=== PATIENT | female | born 2005 ===

== ENCOUNTER 2025-07-11 17:22 | Emergency (ER) | payer MEDICAID ==
[~2025-07-11] VITALS: Ht 157.5 cm; Wt 46.3 kg
[2025-07-11 17:26] VITALS: BP 113/65; PULSE 120; RESP 18; O2SAT 99
[2025-07-11 18:07] LABS: LEUKOCYTE ESTERASE ,URINE TRACE (Neg); NITRITES, URINE NEGATIVE (Neg); OCCULT BLOOD,URINE LARGE (Neg)
[2025-07-11 18:09] LABS: URINE HCG NEGATIVE (NEG)
[2025-07-11 18:17] LABS: UA COLLECTION TYPE CLN CATCH MIDSTREAM
[2025-07-11 18:19] LABS: SQUAMOUS EPITHELIAL CELL,UR MODERATE /LPF (FEW)
[2025-07-11] MEDS: phenazopyridine 100mg tablet PO ONE (20:29)
[2025-07-11] MEDS: ibuprofen tablet 400 MG TABLET PO ONE (20:29)
[2025-07-11] MEDS: CefTRIAXone 1000mg IM Kit (w/lidocaine diluent) IM ONE (20:39)
[2025-07-11] MEDS ORDERED: CEPH-585 PO (20:39)
[2025-07-11] MEDS ORDERED: PHEN-716 PO (20:39)
--- NOTE | 2025-07-11 20:39 | Physician Documentation ---
History of Present Illness ~ Chief Complaint: Urinary Symptoms Stated Complaint: UTI SYMPTOMS Time Seen by MD: 19:56 OK to notify your PCP?: Yes Source: patient Mode of Arrival: POV Exam Limitations: no limitations HPI This is a 19-year-old female who comes in complaining of urinary urgency frequency and burning with urination for the past 2-3 days. She states there was blood on the tissue when she wipes. Her last menstrual period ended two days ago. She denies fevers chills or flank pain. Medication Reconciliation Allergies: Coded Allergies: codeine (Verified Allergy, Unknown, 07/11/25) Physical Exam Vital Signs: Temperature: 98.6, Source: Temporal, Heart Rate: 120, Respiratory Rate: 18, BP: 113/65, Pulse Oximetry: 99, Weight: 46.300 Oxygen Flow Rate: 0 Pulse Oximetry Reflects: adequate oxygenation General Appearance: alert, WD/WN, no apparent distress Respiratory: no respiratory distress Back: no CVA tenderness Progress Results/Orders Reviewed/noted all lab results: Yes Results/Orders Completed Orders - GITA RAHMAN Ceftriaxone Im Kit W/Lidocaine (Rocephin (07/11/25 20:20) Phenazopyridine Tablet (Pyridium Tablet) (07/11/25 20:20) Ibuprofen Tablet (Motrin Tablet) (07/11/25 20:20) Medications Received in ER Medications (Trade) Dose Ordered Sig/Rosy Route PRN Reason Start Time Stop Time Status Last Admin Dose Admin (Pyridium tablet) 200 mg ONCE ONCE PO 07/11/25 20:20 07/11/25 20:21 DC 07/11/25 20:29 200 MG (Motrin tablet) 400 mg ONCE ONCE PO 07/11/25 20:20 07/11/25 20:21 DC 07/11/25 20:29 400 MG Vital Signs 07/11/25 17:26 Temp 98.6 Pulse 120 Resp 18 B/P (MAP) 113/65 Pulse Ox 99 O2 Flow Rate 0 Laboratory Tests Test 07/11/25 17:50 Urine Specimen Description Cln catch midstream Urine Color Yellow Urine Clarity Cloudy Urine pH 6.0 Urine Specific [place] >=1.030 Urine Protein >=300 H Urine Glucose (UA) Negative Urine Ketones Trace H Urine Occult Blood Large H Urine Nitrite Negative Urine Bilirubin Small Urine Urobilinogen 0.2 Urine Leukocyte Esterase Trace H Urine RBC Tntc Urine WBC 10-20 H Urine Squamous Epithelial Cells Moderate Urine Bacteria 2+ Urine Culture Indicated Indicated Volume Urine Centrifuged 10 ml Urine HCG, Qualitative Negative Urine Comment Microbiology Date/Time Source Procedure Growth Status 07/11/25 18:21 Urine Clean Catch Midstream Urine Culture - Preliminary Culture received. Resulted Medical Decision Making Additional information obtaine: N/A Findings Urinalysis showed a significant amount of blood in the patient did finish her menstrual cycle a couple of days ago however her symptoms are very consistent with a urinary tract infection. I gave the patient is Rocephin 1 g IM, Pyridium 200 mg p.o. and ibuprofen 400 mg p.o.. I will continue with the Keflex 500 mg 3 times a day for 10 days and Pyridium for home with the instructions drink lots of water and take ibuprofen as needed for discomfort. Follow up with the primary care physician for recheck towards the end of the antibiotic course to ensure the infection is resolving. Return to the ER for any worsening or concerning symptoms. Urinary Diff Dx:Considerations: Include: AAA, , Aortic dissection, Appendicitis, Bowel obstruction, Cholelithiasis, Choleangitis, DJD, Ectopic , Hepatitis, HNP, Impaction, Intrauterine , Musculoskeletal pain, Ovarian torsion, Pancreatitis, PID, Post-Op complication, Pyelonephritis, Renal failure, Strain, Urinary Obstruction, Urolithiasis, Urinary retention, UTI, Vaginitis, Other Genital Diff Dx:Considerations: Include: -Complete, - Incomplete, -Inevitable, Ablortion-Missed, -Threatened, Abruptio placentae, Bartholin abscess, Bartholin cyst, Blood loss anemia, Constipation, Cervicitis, Dsymenorrhea, Ectopic , Foreign body, Hormonal, Hidradenitis suppurativa, Intrauterine , Menorrhagia, Menometrorrhagia, Menstrual bleeding, Myomatous uterus, Perianal abscess, Physiologic discharge, Pinworms, PID, Placenta previa, , Precipitous Hct, Trauma, UTI, Vaginitis(osis)-Atrophic, Vaginitis, Vaginitis(osis)-Bacterial, Vaginitis(osis)- Candidal, Vaginitis(osis)-Contact, Vaginitis(osis)-Herpes, Vaginitis(osis)- Trich., Other Additional Comment Cystitis. UTI. Pyelonephritis. Hematuria. Nephrolithiasis. Departure Disposition: HOME / SELF CARE / HOMELESS Impression: Primary Impression: Acute urinary tract infection Condition: Stable Discharge Instructions: Urinary Tract Infection, Adult Additional Instructions: Take the medications as prescribed drink lots of water. You can take ibuprofen intermittently as needed for discomfort. Follow up with the your primary care physician to ensure the infection is resolving. Return to the ER for fever, flank pain or any concerns. Referrals: NO PRIMARY CARE PROVIDER (PCP) Prescriptions Phenazopyridine HCl (Pyridium) 200 Mg Tablet 1 TAB PO Q8H for urinary discomfort for 3 Days, #9 TAB 0 Refills Prov: GITA RAHMAN 07/11/25 Cephalexin*Monohydrate* (Keflex*) 500 Mg Capsule 1 CAP PO Q8H for 10 Days, #30 CAP Prov: GITA RAHMAN 07/11/25 Signature Scribe Signature: No scribe Attestation: The note accurately reflects work and decisions made by me.Gita CUEVAS 07/11/25 20:39 GITA RAHMAN Jul 11, 2025 20:39
[2025-07-11 20:50] VITALS: TEMP 98.6
== END 2025-07-11 20:52 | disposition home or self-care (01) ==
LOC: ER 17:23
DX: N39.0 Urinary tract infection, site not specified (principal); Z88.5 Allergy status to narcotic agent
CPT/HCPCS: 81001; 81025; 87088; 96372; 99283; J0696